=== PATIENT | female | born 2000 | race Caucasian/White ===

== ENCOUNTER 2019-01-16 17:47 | Emergency (ER) | payer SELFPAY | END 2019-01-17 00:24 | disposition left against medical advice (07) | LOC: FTE 17:47 | DX: Z53.21 Procedure and treatment not carried out due to patient leaving prior to being seen by health care provider (principal) ==

== ENCOUNTER 2019-01-19 13:26 | Inpatient (IN) | payer MEDICAID ==
[2019-01-19 13:44] LABS: URINE BLOOD (Dip) POC 2+ (NEGATIVE); URINE GLUCOSE (Dip) POC Negative (NEGATIVE); URINE KETONES (Dip) POC 4+ (NEGATIVE); URINE LEUKOCYTE EST (Dip) POC 1+ (NEGATIVE); URINE NITRITE (Dip) POC Positive (NEGATIVE); URINE TOTAL PROTEIN POC 1+ (NEGATIVE)
[2019-01-19] MEDS: ACETAMINOPHEN 325 MG TAB PO (14:03)
[2019-01-19] MEDS: ONDANSETRON 4 MG INJ IV (14:03)
[2019-01-19] MEDS: SODIUM CHLORIDE 0.9% 1L BAG IV* (14:04)
[2019-01-19 14:24] LABS: ADD MAN DIFF? NO
[2019-01-19 14:26] LABS: WHITE BLOOD COUNT 18.8 10^3/ul (4.8-10.8)
[2019-01-19 14:26] LABS: ABNORMAL IP MESSAGE 1; BASOPHIL # 0.1 10^3/ul (0.0-0.1); BASOPHILS % 0.4 % (0.0-2.0); EOSINOPHILS % 0.1 % (0.0-7.0); HEMATOCRIT 39.2 % (37.0-47.0); LYMPHOCYTES # 2.3 10^3/ul (0.8-2.9); LYMPHOCYTES % 12.2 % (18.0-55.0); MEAN CORPUSCULAR HGB CONC 33.2 g/dl (32.0-37.0); MEAN CORPUSCULAR VOLUME 84.3 fl (72.0-104.0); MEAN PLATELET VOLUME 11.6 fl (7.4-10.4); MONOCYTE # 2.1 10^3/ul (0.3-0.9); MONOCYTES % 11.1 % (0.0-13.0); NEUTROPHIL # 14.2 10^3/ul (1.6-7.5); NEUTROPHILS % 75.3 % (30.0-74.0); PLATELET COUNT 230 10^3/UL (140-415); RED BLOOD COUNT 4.65 10^6/ul (4.20-5.40); RED CELL DISTRIBUTION WIDTH 13.2 % (11.5-14.5)
[2019-01-19 14:31] LABS: POSITIVE DIFF @See below
[2019-01-19 14:39] LABS: ADD UMIC YES; UR ASCORBIC ACID NEGATIVE (NEGATIVE); UR BACTERIA FEW /HPF (NONE SEEN); UR BILIRUBIN (Dip) NEGATIVE (NEGATIVE); UR BLOOD (Dip) 2+ mg/dL (NEGATIVE); UR BUDDING YEAST FEW /HPF (NONE SEEN); UR CLARITY SLIGHTLY CLOUDY (CLEAR); UR COLOR YELLOW (YELLOW); UR GLUCOSE (Dip) NEGATIVE (NEGATIVE); UR KETONES (Dip) 2+ mg/dL (NEGATIVE); UR LEUKOCYTE ESTERASE (Dip) 1+ Leu/ul (NEGATIVE); UR NITRITE (Dip) POSITIVE (NEGATIVE); UR RBC 1 /HPF (0-5); UR SPECIFIC GRAVITY (Dip) 1.011 (1.003-1.030); UR TOTAL PROTEIN (Dip) NEGATIVE (NEGATIVE); UR UROBILINOGEN (Dip) NEGATIVE (NEGATIVE); UR WBC 22 /HPF (0-5)
[2019-01-19 14:44] LABS: ALANINE AMINOTRANSFERASE 49 IU/L (13-69); ALBUMIN 3.8 g/dl (3.3-4.9); ALBUMIN/GLOBULIN RATIO 1.15; ALKALINE PHOSPHATASE 114 IU/L (42-121); ANION GAP 12 (5-13); ASPARTATE AMINO TRANSFERASE 33 IU/L (15-46); BILIRUBIN,INDIRECT 0.7 mg/dl (0-1.1); BILIRUBIN,TOTAL 0.7 mg/dl (0.2-1.3); BLOOD UREA NITROGEN 7 mg/dl (7-20); CALCIUM 8.5 mg/dl (8.4-10.2); CARBON DIOXIDE 26 mmol/L (21-31); CHLORIDE 99 mmol/L (97-110); CREATININE 0.85 mg/dl (0.44-1.00); Estimated GFR > 60 mL/min (>60); GLUCOSE 115 mg/dl (70-220); POTASSIUM 3.2 mmol/L (3.5-5.1); SODIUM 137 mmol/L (135-144); TOTAL PROTEIN 7.1 g/dl (6.1-8.1)
[2019-01-19] MEDS: CEFTRIAXONE 1 GM/50 ML (PMX) 50 ML IVPB ×2 (15:25→18:35)
[2019-01-19] MEDS: IBUPROFEN 600 MG TAB PO (15:25)
[2019-01-19 15:38] LABS: INR 1.16; PROTIME 14.9 Sec (11.9-14.9); PT RATIO 1.2
[2019-01-19 15:39] LABS: PARTIAL THROMBOPLASTIN TIME 36.9 Sec (23.0-35.0)
[2019-01-19 15:41] LABS: LACTIC ACID 0.8 mmol/L (0.5-2.0)
[2019-01-19] MEDS ORDERED: NACL 0.9% 3 ML SYG IV (16:30)
[2019-01-19] MEDS: SOD CHLORIDE 0.9% 1,000 ML IV (16:30)
[2019-01-19] MEDS: POTASSIUM CHLORIDE (SR) 20 MEQ TAB PO (16:30)
[2019-01-19 17:26] LABS: LACTIC ACID 0.8 mmol/L (0.5-2.0)
[2019-01-20] MEDS: SOD CHLORIDE 0.9% 1,000 ML IV ×4 (01:52→23:14)
[2019-01-20] MEDS: HYDROCODONE/APAP (5/325) TAB PO ×2 (01:53→23:14)
[2019-01-20 06:04] LABS: ADD MAN DIFF? NO
[2019-01-20 06:06] LABS: WHITE BLOOD COUNT 16.3 10^3/ul (4.8-10.8)
[2019-01-20 06:06] LABS: BASOPHIL # 0.1 10^3/ul (0.0-0.1); BASOPHILS % 0.3 % (0.0-2.0); EOSINOPHILS # 0.1 10^3/ul (0.0-0.5); EOSINOPHILS % 0.7 % (0.0-7.0); HEMATOCRIT 34.8 % (37.0-47.0); HEMOGLOBIN 11.2 g/dl (12.0-16.0); LYMPHOCYTES # 1.9 10^3/ul (0.8-2.9); LYMPHOCYTES % 11.4 % (18.0-55.0); MEAN CORPUSCULAR HEMOGLOBIN 27.9 pg (29.0-33.0); MEAN CORPUSCULAR HGB CONC 32.2 g/dl (32.0-37.0); MEAN CORPUSCULAR VOLUME 86.6 fl (72.0-104.0); MEAN PLATELET VOLUME 10.9 fl (7.4-10.4); MONOCYTE # 1.4 10^3/ul (0.3-0.9); MONOCYTES % 8.8 % (0.0-13.0); NEUTROPHIL # 12.7 10^3/ul (1.6-7.5); PLATELET COUNT 221 10^3/UL (140-415); RED BLOOD COUNT 4.02 10^6/ul (4.20-5.40); RED CELL DISTRIBUTION WIDTH 13.2 % (11.5-14.5)
[2019-01-20 06:48] LABS: ALBUMIN/GLOBULIN RATIO 1.03; ANION GAP 6 (5-13); Estimated GFR > 60 mL/min (>60)
[2019-01-20 06:49] LABS: ALANINE AMINOTRANSFERASE 37 IU/L (13-69); ALBUMIN 3.1 g/dl (3.3-4.9); ALKALINE PHOSPHATASE 90 IU/L (42-121); ASPARTATE AMINO TRANSFERASE 21 IU/L (15-46); BILIRUBIN,INDIRECT 0.5 mg/dl (0-1.1); BILIRUBIN,TOTAL 0.5 mg/dl (0.2-1.3); BLOOD UREA NITROGEN 4 mg/dl (7-20); CALCIUM 8.2 mg/dl (8.4-10.2); CARBON DIOXIDE 26 mmol/L (21-31); CHLORIDE 105 mmol/L (97-110); CREATININE 0.64 mg/dl (0.44-1.00); GLUCOSE 91 mg/dl (70-220); MAGNESIUM 2.1 mg/dl (1.7-2.5); SODIUM 137 mmol/L (135-144); TOTAL PROTEIN 6.1 g/dl (6.1-8.1)
[2019-01-20 06:49] LABS: PHOSPHORUS 2.9 mg/dl (2.5-4.9)
[2019-01-20] MEDS: ACETAMINOPHEN 325 MG TAB PO (07:50)
[2019-01-20] MEDS: ENOXAPARIN 40 MG/0.4 ML SYG SC (08:29)
[2019-01-20] MEDS: BISACODYL (EC) 5 MG TAB PO (11:10)
[2019-01-20] MEDS: POLYETHYLENE GLYCOL 17 GM PACKET PO ×2 (11:10→21:03)
[2019-01-20] MEDS: CEFTRIAXONE 1 GM/50 ML (PMX) 50 ML IVPB (11:10)
[2019-01-20] MEDS: ONDANSETRON 4 MG INJ IV (12:59)
[2019-01-21 06:23] LABS: ADD MAN DIFF? NO
[2019-01-21 06:32] LABS: BASOPHIL # 0.1 10^3/ul (0.0-0.1); BASOPHILS % 0.4 % (0.0-2.0); EOSINOPHILS # 0.2 10^3/ul (0.0-0.5); EOSINOPHILS % 1.8 % (0.0-7.0); HEMATOCRIT 34.6 % (37.0-47.0); HEMOGLOBIN 11.4 g/dl (12.0-16.0); LYMPHOCYTES # 2.7 10^3/ul (0.8-2.9); LYMPHOCYTES % 22.7 % (18.0-55.0); MEAN CORPUSCULAR HEMOGLOBIN 28.3 pg (29.0-33.0); MEAN CORPUSCULAR HGB CONC 32.9 g/dl (32.0-37.0); MEAN CORPUSCULAR VOLUME 85.9 fl (72.0-104.0); MONOCYTE # 1.1 10^3/ul (0.3-0.9); MONOCYTES % 9.4 % (0.0-13.0); NEUTROPHIL # 7.7 10^3/ul (1.6-7.5); NEUTROPHILS % 64.4 % (30.0-74.0); PLATELET COUNT 271 10^3/UL (140-415); RED BLOOD COUNT 4.03 10^6/ul (4.20-5.40); RED CELL DISTRIBUTION WIDTH 13.2 % (11.5-14.5)
[2019-01-21 06:37] LABS: PHOSPHORUS 4.1 mg/dl (2.5-4.9)
[2019-01-21 06:37] LABS: MAGNESIUM 2.3 mg/dl (1.7-2.5)
[2019-01-21 07:01] LABS: ALANINE AMINOTRANSFERASE 48 IU/L (13-69); ALBUMIN/GLOBULIN RATIO 1.03; ALKALINE PHOSPHATASE 89 IU/L (42-121); ANION GAP 9 (5-13); ASPARTATE AMINO TRANSFERASE 33 IU/L (15-46); BILIRUBIN,INDIRECT 0.4 mg/dl (0-1.1); BILIRUBIN,TOTAL 0.4 mg/dl (0.2-1.3); BLOOD UREA NITROGEN 4 mg/dl (7-20); CALCIUM 8.4 mg/dl (8.4-10.2); CARBON DIOXIDE 27 mmol/L (21-31); CHLORIDE 104 mmol/L (97-110); CREATININE 0.59 mg/dl (0.44-1.00); Estimated GFR > 60 mL/min (>60); GLUCOSE 82 mg/dl (70-220); SODIUM 140 mmol/L (135-144); TOTAL PROTEIN 5.9 g/dl (6.1-8.1)
[2019-01-21] MEDS: POLYETHYLENE GLYCOL 17 GM PACKET PO (09:00)
[2019-01-21] MEDS: ENOXAPARIN 40 MG/0.4 ML SYG SC (09:00)
[2019-01-21] MEDS: CEFTRIAXONE 1 GM/50 ML (PMX) 50 ML IVPB (10:27)
[2019-01-21] MEDS: SOD CHLORIDE 0.9% 1,000 ML IV (10:28)
== END 2019-01-21 16:32 | disposition home or self-care (01) | DRG 872 ==
LOC: E/R 13:26 → PP2 15:45
PROVIDERS: Internal Medicine
DX: A41.9 Sepsis, unspecified organism (principal); N12 Tubulo-interstitial nephritis, not specified as acute or chronic; R11.10 Vomiting, unspecified; K59.00 Constipation, unspecified; E87.6 Hypokalemia; B96.20 Unspecified Escherichia coli [E. coli] as the cause of diseases classified elsewhere
CPT/HCPCS: 36415; 71045; 74018; 76705; 76775; 80053; 81001; 81003; 81025; 83605; 83735; 84100; 85025; 85610; 85730; 87040-91; 87086; 87400; 93005; 96374; 96375; 99285-25; G0378

== ENCOUNTER 2019-04-28 21:43 | Emergency (ER) | payer MEDICAID ==
[2019-04-28] MEDS: CYCLOBENZAPRINE 10 MG TAB PO (23:03)
[2019-04-28] MEDS: IBUPROFEN 800 MG TAB PO (23:04)
== END 2019-04-28 23:40 | disposition home or self-care (01) ==
LOC: FTE 21:43
DX: S16.1XXA Strain of muscle, fascia and tendon at neck level, initial encounter (principal); V49.50XA Passenger injured in collision with unspecified motor vehicles in traffic accident, initial encounter
CPT/HCPCS: 99283; Z7502